=== PATIENT | female | born 1990 | race Caucasian/White ===

== ENCOUNTER 2020-12-07 04:01 | Inpatient (IN) | payer OTHER ==
[~2020-12-07] VITALS: Ht 157.5 cm; Wt 77.1 kg
[2020-12-07 04:51] LABS: HCT 33.7 % (37.0-47.0); HGB 11.3 g/dl (12.5-16.0); MCHC 33.5 g/dL (32.0-36.0); MCV 95.5 fL (78.0-100.0); MPV 9.8 fL (6.0-9.5); RBC 3.53 M/uL (4.20-5.40); RDW 14.3 % (11.5-14.0); WBC 17.6 K/uL (4.0-10.5)
[2020-12-08 07:39] LABS: HCT 28.4 % (37.0-47.0); HGB 9.2 g/dl (12.5-16.0); MCH 32.1 pg (25.0-31.0); MCHC 32.4 g/dL (32.0-36.0); MPV 9.8 fL (6.0-9.5); RBC 2.87 M/uL (4.20-5.40); RDW 14.5 % (11.5-14.0); WBC 9.5 K/uL (4.0-10.5)
== END 2020-12-09 12:30 | disposition home or self-care (01) | DRG 806 ==
LOC: FOB 04:01 → FOD 04:01 → FOB 04:09 → FOD 04:32 → FOB 04:33
PROVIDERS: ADMIT Specialist
PROC: 10E0XZZ Delivery of Products of Conception, External Approach (ICD-10-PCS; principal; 2020-12-07)
PROC: 3E0334Z Introduction of Serum, Toxoid and Vaccine into Peripheral Vein, Percutaneous Approach (ICD-10-PCS; 2020-12-08)
DX: O99.02 Anemia complicating childbirth (principal); D62 Acute posthemorrhagic anemia; Z37.0 Single live birth; Z3A.39 39 weeks gestation of pregnancy; O26.893 Other specified pregnancy related conditions, third trimester; Z67.41 Type O blood, Rh negative; Z20.822 Contact with and (suspected) exposure to COVID-19; F17.200 Nicotine dependence, unspecified, uncomplicated; O99.334 Smoking (tobacco) complicating childbirth; Z23 Encounter for immunization
CPT/HCPCS: 36415; 80305; 81001; 85461; 86850; 86900; 86901; J0595; J2790; J2916; J7120; U0002